=== PATIENT | female | born 1995 | race African-American/Black ===

== ENCOUNTER 2016-09-20 21:02 | Emergency (ER) | payer OTHER ==
[~2016-09-20] VITALS: Ht 167.6 cm; Wt 84.5 kg
[2016-09-20 21:17] VITALS: BP 111/62; PULSE 83; RESP 18; O2SAT 97
[2016-09-20 21:46] LABS: BASOPHILS % (AUTO) 0.1 % (0-3); EOSINOPHILS % (AUTO) 2.5 % (0-5); MONOCYTES % (AUTO) 10.7 % (4-12); Mean Corpuscular Hemoglobin 28.4 pg (27.0-35.0); Mean Corpuscular Volume 85.4 fL (81-100); NEUTROPHILS % (AUTO) 62.9 % (40-74); Platelet Count 213 bil/L (150-400)
[2016-09-20 22:25] LABS: Magnesium 1.8 mg/dL (1.6-2.6)
--- NOTE | 2016-09-20 22:36 | ED.REPORT ---
HPI-General Illness Date of Service Sep 20, 2016 ED Provider: Tony Walker MD Patient is a 20 year old female who currently 29 week presents to the ED complaining of intermittent heart palpitations that have been ongoing for past 2-3 days. She describes the sensation of a skipped beat, followed by a very heavy beat. She is able to feel when these beats occur, but denies any actual pain. Patient states that it feels as if her heart is racing and reports associated shortness of breath. Patient admits that she is also very anxious. She occasionally drinks beverages with caffeine but denies eating chocolate, energy drinks, or using illicit drugs. Patient was cleared at [facility] prior to arrival. She denies abdominal pain, vomiting, or dysuria. Nursing Notes Stated Complaint: PALPITATIONS Chief Complaint: Dysrhythmia/Cardiac Nursing Notes Reviewed: Yes Scheduled Potassium Chloride (Potassium Chloride) 20 Meq Tab.er.prt 20 MEQ PO DAILY TAKE WITH FOOD General Time Seen by MD: 22:33 Chief Complaint Other (palpitations) Hx Obtained From: Patient Past Medical History Past Medical History Healthy, 29 weeks Past Surgical History none reported Smoking History Former Smoker Social History Other Social History: Good social support, Local resident Ambulatory Status Independent Review of Systems Full Review of Systems Respiratory: Reports: Shortness of breath, Denies: Non-productive cough Cardiovascular: Reports: Palpitations, Denies: Chest pain GI: Denies: Abdominal pain, Vomiting Female: Denies: Dysuria Psychiatric: Reports: Anxiety Complete sys rev & neg: except as marked. Physical Exam Vital Signs Vital Signs Date Time Temp Pulse Resp B/P Pulse Ox O2 Delivery O2 Flow Rate FiO2 09/20/16 23:02 95 17 108/60 98 Room Air 09/20/16 21:17 36.7 83 18 111/62 97 Room Air Initial VS: Reviewed, Vital signs normal Extremities: Vascular intact, Neuro intact, No swelling Skin: Warm, Dry, No cyanosis Neurologic: Alert, Oriented, Nonfocal Psychiatric: Mood/affect normal, Behavior normal, Normal thought content General/Constitutional: Awake, Alert, No acute distress Head / Eyes: Normocephalic, PERRL ENT: Airway patent, Mucous membranes moist Neck: Supple, Full range of motion Respiratory / Chest: Breath sounds NL, Breath sounds = bilat, No respiratory distress, No rales, No rhonchi, No wheezing Cardiovascular: Heart rate NL, Regular rhythm, Heart sounds NL, No gallop, No murmurs, No rubs Abdomen: Soft, Non-tender gravid abdomen consistent with gestational age Interpretation & Diagnostics Lab Results Interpretation Result Diagram: 09/20/16212909/20/162129 Test 09/20/16 21:30 White Blood Count 10.3th/mm3 (3.8-10.1) Red Blood Count 3.91mil/mm3 (3.90-5.20) Hemoglobin 11.1g/dL (12.0-15.6) Hematocrit 33.4% (35.0-46.0) Mean Corpuscular Volume 85.4fL (81-100) Mean Corpuscular Hemoglobin 28.4pg (27.0-35.0) Mean Corpuscular Hemoglobin Concent 33.2% (32.0-37.0) Red Cell Distribution Width 14.3% (12.3-15.4) Platelet Count 213bil/L (150-400) Neutrophils (%) (Auto) 62.9% (40-74) Lymphocytes (%) (Auto) 23.4% (14-46) Monocytes (%) (Auto) 10.7% (4-12) Eosinophils (%) (Auto) 2.5% (0-5) Basophils (%) (Auto) 0.1% (0-3) Sodium Level 137mEq/L (134-144) Potassium Level 2.9mEq/L (3.5-5.2) Chloride Level 101mEq/L (97-108) Carbon Dioxide Level 24mmol/L (18-29) Blood Urea Nitrogen 2mg/dL (6-20) Creatinine 0.32mg/dL (0.57-1.00) Estimat Glomerular Filtration Rate 335mL/min (>59) Glucose Level 91mg/dL (60-99) Calcium Level 8.6mg/dL (8.5-10.1) Magnesium Level 1.8mg/dL (1.6-2.6) Total Bilirubin 0.2mg/dL (0.0-1.2) Aspartate Amino Transf (AST/SGOT) 20U/L (0-50) Alanine Aminotransferase (ALT/SGPT) 13U/L (0-32) Alkaline Phosphatase 71U/L (25-150) Total Protein 6.1g/dL (6.4-8.4) Albumin 3.5g/dL (3.4-5.0) Lab Results Interpretation: Hypokalemia ECG Interpretation ECG Interpretation: Sinus rhythm, Rate 84 Nonspecific T abnormalities, anterior leads Time: 22:15 Interpreted by: ED physician Re-Eval/Medical Decision Med Decision/Clinical Course 20-year-old female who is at 29 weeks . She describes the PVCs but I find no correlating abnormalities on the monitor. She was reassured that this is not serious. She also has low potassium which will be treated orally over the next 10 days. She will follow-up with her primary provider for potassium recheck and further evaluation of the palpitations. Source of Hx: Old records Time of Eval: 23:24 Patient Status: Condition improved Re-Evaluation/Progress Note: Rechecked the patient, who was asked to note the times that she experiences skipped beats. Skipped beats not found on monitor. Patient understands and agrees with the plan to be discharged home. Discharge instructions and follow-up discussed. All questions were addressed. Return to the ED warnings given. Counseled Regarding: Diagnosis, Need for follow-up, When/why to return to ED Discharge & Departure Primary Impression: Heart palpitations Disposition: Home Discharge Condition All VS Reviewed: Yes Condition: Stable Patient Instructions: Palpitations (ED) Additional Instructions: Your description of the heart irregularity sounds like a PVC (premature ventricular contractions), but I cannot find any instances of these on the monitor. This is not dangerous, just bothersome. Talk to your regular doctor if you have further problems. This may be related to caffeine intake and/or anxiety/stress. Your potassium is also a little low. Potassium chloride 20 meq daily for 10 days. Ask your doctor to recheck it. Referrals: GUS VALENTINE (PCP) Scribe Attestation Portions of this note were transcribed by Anna Dillon. I, Dr. Walker personally performed the history, physical exam and medical decision-making; I reviewed and confirmed the accuracy of the information in the transcribed note. Signed by: Isaac Wilkinson, 09/20/2016 [id number] copies to: GUS VALENTINE Howard L MD Sep 20, 2016 22:35 Anna Dillon Sep 20, 2016 22:46
[2016-09-20 23:02] VITALS: BP 108/60; PULSE 95; RESP 17; O2SAT 98
[2016-09-20] MEDS ORDERED: POTA20TA16 PO (23:53)
[2016-09-21 00:06] VITALS: BP 119/60; PULSE 91; RESP 19; O2SAT 99
== END 2016-09-21 00:12 | disposition home or self-care (01) ==
LOC: SED 21:02
DX: O99.89 Other specified diseases and conditions complicating pregnancy, childbirth and the puerperium (principal); R00.2 Palpitations; R06.02 Shortness of breath; Z3A.29 29 weeks gestation of pregnancy; Z87.891 Personal history of nicotine dependence